=== PATIENT | female | born 1980 | race Caucasian/White ===

== ENCOUNTER 2020-04-30 16:40 | Emergency (ER) | payer SELFPAY ==
[~2020-04-30] VITALS: Ht 154.9 cm; Wt 78.3 kg
[2020-04-30] MEDS ORDERED: HYDROmorphone 2 MG/ML, 1ML ONE (16:56)
[2020-04-30] MEDS ORDERED: ONDANSETRON 2MG/ML, 2ML ONE (16:56)
[2020-04-30] MEDS ORDERED: HYDROmorphone 2 MG/ML, 1ML IVPush PRN (17:00)
[2020-04-30] MEDS ORDERED: PLEASE ENTER HEIGHT AND WEIGHT MC SCH (17:00)
[2020-04-30] MEDS ORDERED: SODIUM CHLORIDE FLUSH 10ML SYR IVF ONE (17:00)
[2020-04-30] MEDS ORDERED: ONDANSETRON 2MG/ML, 2ML IVPush ONE (17:00)
[2020-04-30] MEDS ORDERED: PROPOFOL 10 MG/ML, 20ML ONE (17:29)
[2020-04-30] MEDS ORDERED: PROPOFOL 10 MG/ML, 20ML IVPush ONE (17:30)
[2020-04-30] MEDS ORDERED: LIDOCAINE-MPF 1%, 5ML INFIL ONE (17:30)
[2020-04-30] MEDS ORDERED: LIDOCAINE-MPF 1%, 5ML ONE (17:45)
[2020-04-30 18:21] VITALS: BP 121/75
--- NOTE | 2020-04-30 18:37 | NUR ---
PT TOLERATED PROCEDURE, RECOVERING WELL. WITH 02 TITRATION. FRIEND AT BS. CALL LIGHT WTHIN REACH.
--- NOTE | 2020-04-30 18:50 | NUR ---
REPORT GIVEN TO JOVANNA INCLUDING PROCEDURAL SEDATION PACKET FOR DC.
--- NOTE | 2020-04-30 19:11 | NUR ---
RECEIVED REPORT, DR JARVIS TO BEDSIDE TO SPEAK WITH PT ONE MORE TIME PRIOR TO DC. DC PAPERS ARE UP.
--- NOTE | 2020-04-30 19:31 | NUR ---
PT SHAKING UNCONTROLLABLY AT THIS TIME, AND SAYS SHE FEELS SUPER COLD. WARM BLANKETS X4 PLACED ON PT. HYPOTENSIVE AND REPEAT BP IS HYPERTENSIVE PT IS UNABLE TO STOP SHAKING. POST MEDICATION FOR CONSCIOUSS SEDATION. COMFORT MEASURES IN PLACE, AND ON CR MONITOR, AIRWAY INTACT, AND GOOD AERATION AND OXYGENATION, AND PT A&OX4, WITH SO AT BEDSIDE.
== END 2020-04-30 20:23 | disposition home or self-care (01) ==
LOC: ED 18:51
DX: L02.416 Cutaneous abscess of left lower limb (principal); R10.2 Pelvic and perineal pain
CPT/HCPCS: 10060; 96374; 96375; 99285; J1170; J2405; J2704; 56420

== ENCOUNTER 2020-05-02 10:10 | Emergency (ER) | payer SELFPAY ==
[~2020-05-02] VITALS: Ht 157.5 cm; Wt 79.2 kg
[2020-05-02 10:12] VITALS: BP 95/66
--- NOTE | 2020-05-02 11:18 | NUR ---
Patient given discharge instructions and they have confirmed that they understand the instructions. Patient ambulatory with steady gait.
== END 2020-05-02 11:19 | disposition home or self-care (01) ==
LOC: ED 10:26
DX: L02.31 Cutaneous abscess of buttock (principal); Z90.49 Acquired absence of other specified parts of digestive tract
CPT/HCPCS: 99283

== ENCOUNTER 2020-05-04 16:34 | Emergency (ER) | payer SELFPAY ==
[~2020-05-04] VITALS: Ht 154.9 cm; Wt 81.8 kg
[2020-05-04 16:37] VITALS: BP 106/70
--- NOTE | 2020-05-04 17:28 | NUR ---
Patient given discharge instructions and they have confirmed that they understand the instructions. Patient ambulatory with steady gait.
== END 2020-05-04 17:29 | disposition home or self-care (01) ==
LOC: ED 17:23
DX: K61.0 Anal abscess (principal); L98.9 Disorder of the skin and subcutaneous tissue, unspecified
CPT/HCPCS: 99281

== ENCOUNTER 2020-08-09 19:13 | Emergency (ER) | payer SELFPAY ==
[~2020-08-09] VITALS: Ht 154.9 cm; Wt 79.8 kg
[2020-08-09 19:19] VITALS: BP 107/62
--- NOTE | 2020-08-09 19:49 | NUR ---
HIP/LOWER BACK/PELVIS MUSCLES ACHES WITH ASSOCIATED SOB WITH EXAM-APPEARS WELL, VSS CLEAN CATCH UA OBTAINED REPORT TO CHRIS MOREIRA
--- NOTE | 2020-08-09 19:56 | NUR ---
REPORT FROM DEON ASSUMED CARE OF PT AT THIS TIME
[2020-08-09] MEDS ORDERED: ONDANSETRON ODT 4 MG ONE (19:59)
[2020-08-09] MEDS ORDERED: ONDANSETRON ODT 4 MG PO ONE (20:00)
[2020-08-09 20:02] LABS: MICROSCOPIC INDICATED
[2020-08-09 20:15] LABS: BASOPHILS % (AUTO) 0 % (0-1); EOSINOPHILS % (AUTO) 1 % (1-7); LYMPHOCYTES % (AUTO) 35 % (22-44); MEAN CORPUSCULAR HEMOGLOBIN 27.5 pg (27.0-34.8); MEAN CORPUSCULAR HGB CONC 32.6 g/dL (32.4-35.8); MEAN PLATELET VOLUME 6.9 fL (7.4-10.4); MONOCYTES % (AUTO) 7 % (2-9); NEUTROPHILS % (AUTO) 56 % (42-75); PLATELET COUNT 312 x10^3/uL (130-400); RED BLOOD COUNT 4.86 x10^6/uL (3.82-5.3); RED CELL DISTRIBUTION WIDTH 14.8 % (9.6-15.2)
[2020-08-09 20:21] LABS: ALANINE AMINOTRANSFERASE 33 U/L (12-78); ALBUMIN 3.2 g/dL (3.4-5.0); ANION GAP 5 mmol/L (5-15); CALCIUM 8.5 mg/dL (8.5-10.1); CHLORIDE 113 mmol/L (98-107); CREATININE 0.92 mg/dL (0.55-1.02)
[2020-08-09 20:26] LABS: ALKALINE PHOSPHATASE 68 U/L (45-117); BILIRUBIN,TOTAL 0.1 mg/dL (0.2-1.0); TOTAL PROTEIN 7.5 g/dL (6.4-8.2)
== END 2020-08-09 21:23 | disposition home or self-care (01) ==
LOC: ED 19:43
DX: N30.00 Acute cystitis without hematuria (principal); R10.30 Lower abdominal pain, unspecified
CPT/HCPCS: 36415; 80053; 81001; 83690; 84703; 85025; 87086; 99283; Q0162